=== PATIENT | male | born 1950 | race Caucasian/White ===

== ENCOUNTER 2022-10-31 17:04 | Emergency (ER) | payer MEDICARE, BC ==
--- NOTE | 2022-10-31 17:07 | ERPHSYRPT ---
- History of Present Illness Time Seen by Provider: 10/31/22 17:07 Source: patient, family Exam Limitations: no limitations Physician History: This is a 71-year-old patient was moving plastic ties from a box using a knife. Patient is left-handed and he cut his dorsal aspect of his right thumb. His tetanus status is not up-to-date. Timing/Duration: today Quality: painful Severity: mild Location: hands (Dorsal aspect right thumb) Associated Symptoms: denies symptoms Allergies/Adverse Reactions: codeine Adverse Reaction (Intermediate, Verified 10/31/22 17:20) upset stomach Home Medications: Aspirin [Aspirin EC] 81 mg PO DAILY 10/31/22 [History] Atorvastatin Calcium [Lipitor] 20 mg PO DAILY 10/31/22 [History] Travel Risk - International Travel Have you traveled outside of the country in past 3 weeks: No - Coronavirus Screening Are you exhibiting any of the following symptoms?: No Close contact with a COVID-19 positive Pt in past 14-21 Days: No - Review of Systems Constitutional: No Symptoms Eyes: No Symptoms Ears, Nose, & Throat: No Symptoms Respiratory: No Symptoms Cardiac: No Symptoms Abdominal/Gastrointestinal: No Symptoms Genitourinary Symptoms: No Symptoms Musculoskeletal: No Symptoms Skin: Other (2.5 cm curvilinear laceration dorsal aspect left thumb) Neurological: No Symptoms Psychological: No Symptoms Endocrine: No Symptoms Hematologic/Lymphatic: No Symptoms Immunological/Allergic: No Symptoms All Other Systems: Reviewed and Negative - Past Medical History Pertinent Past Medical History: No - Past Surgical History Past Surgical History: No - Nursing Vital Signs Nursing Vital Signs: Initial Vital Signs Temperature 97.1 F 10/31/22 17:14 Pulse Rate 75 10/31/22 17:14 Respiratory Rate 18 10/31/22 17:14 Blood Pressure 133/67 10/31/22 17:14 O2 Sat by Pulse Oximetry 95 10/31/22 17:14 Pain Scale Pain Intensity 0 - Physical Exam General Appearance: no apparent distress, alert, anxiety Eye Exam: PERRL/EOMI, eyes nml inspection Ears, Nose, Throat Exam: normal ENT inspection, moist mucous membranes Neck Exam: normal inspection, non-tender, supple, full range of motion Respiratory Exam: airway intact, No chest tenderness, No respiratory distress Gastrointestinal/Abdomen Exam: No tenderness Rectal Exam: not done Back Exam: normal inspection, normal range of motion, No CVA tenderness, No vertebral tenderness Extremity Exam: normal range of motion, pelvis stable, lacerations (Single, curvilinear 2.5 cm laceration dorsal aspect right thumb), tenderness (Mild right thumb laceration) Neurologic Exam: alert, oriented x 3, cooperative, household cook II-XII nml as tested, normal mood/affect, nml cerebellar function, nml station & gait, sensation nml Skin Exam: laceration (Curvilinear) Lymphatic Exam: No adenopathy ( laceration dorsal aspect right thumb) SpO2 Interpretation: normal O2 Delivery: Room Air Procedures - Laceration/Wound Repair Right Dorsal Finger Time of Procedure: 18:00 Wound Location: Right, hand (Dorsal aspect right thumb) Wound Length (cm): 2.5 Wound's Depth, Shape: superficial, linear, into subcut Wound Explored: clean (Wound explored to the base. He was explored in a bloodless field and no foreign body noted) Irrigated: Yes Hibiclens Prep: Yes Anesthesia: 1% Lidocaine (3 cc) Volume Anesthetic (ccs): 3 Wound Repaired With: sutures Suture Size/Type: 3-0, prolene Number of Sutures: 3 Layer Closure?: No Progress: 10/31/22 18:24 Patient tolerated the procedure well. There were no complications. Pressure dressing was applied by the nurse after cleansing the site and apply a thin layer of bacitracin ointment to it. - Course Nursing assessment & vital signs reviewed: Yes Ordered Tests: Medication Summary Discontinued Medications Generic Name Dose Route Start Last Admin Trade Name Freq PRN Reason Stop Dose Admin Bacitracin Zinc 0.9 each 10/31/22 17:42 10/31/22 18:10 Bacitracin Packet 1 Each Pckt TP 10/31/22 17:43 0.9 each STAT ONE Administration Bacitracin Zinc Confirm 10/31/22 18:08 Bacitracin Packet 1 Each Pckt Administered 10/31/22 18:09 Dose 1 each .ROUTE .STK-MED ONE Diphtheria/Tetanus/Acell Pertussis 0.5 ml 10/31/22 17:42 10/31/22 18:10 Tdap --Diph,Pertuss(Acell),Tet Vac/Pf 0.5 Ml Vial IM 10/31/22 17:43 0.5 ml .ONCE ONE Administration Diphtheria/Tetanus/Acell Pertussis Confirm 10/31/22 18:08 Tdap --Diph,Pertuss(Acell),Tet Vac/Pf 0.5 Ml Vial Administered 10/31/22 18:09 Dose 0.5 ml IM .STK-MED ONE - Progress Progress: improved, pain not gone completely, re-examined Progress Note: 10/31/22 18:25 This patient's medical issue is 1 of low complexity. The level of complexity in the work-up performed is based on review of the patient's past medical history, review of the patient's medication list, review the patient's drug allergy list, history of present illness and physical findings on examination. Counseled pt/family regarding: diagnosis, need for follow-up Medical Desision Making - Diagnostic Testing Diagnostic test were ordered, analyzed, and reviewed by me: No - Risk of complications Minimal Risk: Minimal risk of morbidity - Departure Departure Disposition: Home Clinical Impression: Thumb laceration Condition: Stable Critical Care Time: No Additional Instructions: Keep current pressure dressing in place until the evening of 11/01/2022. At that time, remove the dressing and wash the site daily thereafter. After each washing, blot dry use a chairman ceo to dry the site. Apply thin layer of antibiotic ointment and rebandage the site. Suture removal in 8 to 10 days.
[2022-10-31 17:20] VITALS: RESP 18; TEMP 97.1; O2SAT 95
[2022-10-31] MEDS ORDERED: Adacel Vial IM ONE ×2 (17:42→18:08)
[2022-10-31] MEDS ORDERED: BACIGUENT PACKET TP ONE (17:42)
[2022-10-31] MEDS ORDERED: BACIGUENT PACKET ONE (18:08)
[2022-10-31 18:13] VITALS: BP 135/65; PULSE 88
== END 2022-10-31 18:35 | disposition home or self-care (01) ==
LOC: ED 17:04
DX: S61.011A Laceration without foreign body of right thumb without damage to nail, initial encounter (principal); W26.0XXA Contact with knife, initial encounter; Z79.899 Other long term (current) drug therapy; Z23 Encounter for immunization
CPT/HCPCS: 12001; 90471; 90715; 99282; A9270-GY